=== PATIENT | male | born 1975 | race Caucasian/White ===

== ENCOUNTER 2018-12-11 10:27 | Emergency (ER) ==
[2018-12-11 10:36] VITALS: BP 187/105; TEMP 98.4; BMI 41.3
--- NOTE | 2018-12-11 10:44 | ED.PDOC ---
General ED Provider: Dr. RICCARDO VANCE Chief Complaint: Respiratory Complaint Stated Complaint: Sore throat; cough 2 - 3 days; sick and cought it from her. Time Seen by Physician: 11:05 Mode of Arrival: Walk-In Information Source: Patient Exam Limitations: No limitations Nursing and Triage Documentation Reviewed and Agree: Yes Does patient meet sepsis criteria?: No System Inflammatory Response Syndrome: Not Applicable Sepsis Protocol: For patient's 13 years and over: Temp is 96.8 and below OR 101 and greater Pulse >90 BPM Resp >20/minute Acutely Altered Mental Status Are patient's symptoms suggestive of a new infection, such as: -Pneumonia -Skin, Soft Tissue -Endocarditis -UTI -Bone, Joint Infection -Implantable Device -Acute Abdominal Infection -Wound Infection -Meningitis -Blood Stream Catheter Infection -Unknown Review of Systems - Review Of Systems Constitutional: Reports: Malaise Eyes: Reports: No symptoms Ears, Nose, Mouth, Throat: Reports: Throat pain (Sore throat) Respiratory: Reports: Cough (Paroxysmal coughing). Denies: Orthopnea, Short of air, Stridor, Wheezing GI: Reports: No symptoms. Denies: Diarrhea, Nausea All Other Systems: Reviewed and Negative Past Medical History - Past Medical History Endocrine: Reports: DM 2 Cardiovascular: Reports: Hypertension Respiratory: Reports: None Hematological: Reports: None Gastrointestinal: Reports: None Genitourinary: Reports: None Neuro/Psych: Reports: None Musculoskeletal: Reports: None Cancer: Reports: None - Surgical History General Surgical History: Reports: None - Family History Family History: Reports: None - Social History Smoking Status: Never smoker Hx Substance Use: No Alcohol Screening: Occasionally Physical Exam - Physical Exam Appearance: Well-appearing Ill-appearing: None Pain Distress: None Eyes: KATIE, EOMI ENT: Nose normal, Oropharynx normal Neck: Supple Respiratory: Airway patent, Breath sounds clear, Breath sounds equal, Respirations nonlabored Cardiovascular: RRR GI/: Soft, Nontender Musculoskeletal: Normal strength, ROM intact Skin: Warm, Dry, Normal color Neurological: Sensation intact, Motor intact, Alert, Oriented Psychiatric: Affect appropriate, Mood appropriate Critical Care Note - Critical Care Note Total Time (mins): 7 Course - Course Orders, Labs, Meds: Lab Review 12/11/18 09:45 Influ A Molecular Assay Negative by naat Influ B Molecular Assay Negative by naat Orders Category Date Time Status FLU A/B MOLECULAR Stat LAB 12/11/18 09:45 Completed RAPID STREP SCREEN [MOLECULAR GROUP A STREP] Stat LAB 12/11/18 09:45 Completed Flu A and B negative; also Strep negative Vital Signs: Temp Pulse Resp BP Pulse Ox 12/11/18 10:28 98.4 F 92 H 20 187/105 H 96 Departure - Departure Time of Disposition: 12:23 Disposition: HOME SELF-CARE Discharge Problem: Bronchitis Instructions: Acute Bronchitis (ED) Condition: Stable Pt referred to PMD for follow-up: Yes (Follow up with primary care) IPMP verified?: No (Not applicable) Additional Instructions: Take antibiotic as prescrbed; follow up with primary care. Prescriptions: Azithromycin [Zithromax Tri-Nithin] 500 mg PO DAILY 3 Days #3 tablet Allergies/Adverse Reactions: Allergies No Known Allergies Allergy (Verified 12/11/18 10:36) Home Medications: Ambulatory Orders Azithromycin [Zithromax Tri-Nithin] 500 mg PO DAILY 3 Days #3 tablet 12/11/18 Disposition Discussed With: Patient
== END 2018-12-11 12:42 | disposition home or self-care (01) ==
LOC: ED 10:27
DX: J40 Bronchitis, not specified as acute or chronic (principal); J02.9 Acute pharyngitis, unspecified
CPT/HCPCS: 87502; 87651; 99283